=== PATIENT | male | born 1990 | race Caucasian/White ===

== ENCOUNTER 2016-03-30 16:21 | Emergency (ER) | payer SELFPAY ==
[2016-03-30] MEDS ORDERED: IBUPROFEN 800 MG TABLET PO ONE (17:38)
[2016-03-30] MEDS ORDERED: AMOXICILLIN TRIHYDRATE 500 MG CAPSULE PO ONE (17:38)
[2016-03-30 17:40] VITALS: BP 146/95
--- NOTE | 2016-03-30 17:40 | ER Document Report ---
HPI - HPI Patient complains to provider of: right ear pain Onset: Yesterday Onset/Duration: Sudden, Persistent Quality of pain: Achy Severity: Severe Pain Level: 5 Context: Patient since the emergency department with complaints of right ear pain. He reports he tried cleaning his ear yesterday and started having ear pain. He denies other symptoms such as fever vomiting diarrhea. Patient has heat pack to his ear and reports it makes his ear feel a lot better. Associated Symptoms: None Exacerbated by: Denies Relieved by: Denies Similar symptoms previously: No Recently seen / treated by doctor: No Past Medical History - General Information source: Patient - Social History Smoking Status: Current Every Day Smoker Cigarette use (# per day): Yes Chew tobacco use (# tins/day): No Frequency of alcohol use: None Drug Abuse: None Family History: Reviewed & Not Pertinent, Arthritis, CAD, Hyperlipidemia, Hypertension, Malignancy Pulmonary Medical History: Reports: Hx Asthma Skin Medical History: Denies Hx MRSA Psychiatric Medical History: Reports: Hx Attention Deficit Hyperactivity Disorder Surgical Hx: Negative - Immunizations Immunizations up to date: No Hx Diphtheria, Pertussis, Tetanus Vaccination: Yes - unknown Vertical Provider Document - CONSTITUTIONAL Agree With Documented VS: Yes Exam Limitations: No Limitations General Appearance: WD/WN, Mild Distress - moaning with heat pack to his ear - INFECTION CONTROL TRAVEL OUTSIDE OF THE [place] IN LAST 30 DAYS: No - HEENT HEENT: Atraumatic, Normocephalic, Tympanic Membrane Red - right - NECK Neck: Normal Inspection, Supple. negative: Lymphadenopathy-Left, Lymphadenopathy-Right - RESPIRATORY Respiratory: Breath Sounds Normal - CARDIOVASCULAR Cardiovascular: Regular Rate - MUSCULOSKELETAL/EXTREMETIES Musculoskeletal/Extremeties: LEONIDES SIMMS - NEURO Level of Consciousness: Awake, Alert, Appropriate Motor/Sensory: No Motor Deficit - DERM Integumentary: Warm, Dry Course - Re-evaluation Re-evalutation: 03/30/16 17:44 She instructed on amoxicillin and Motrin. Verbalized understanding. Patient also instructed to follow-up with the primary care provider for recheck or return here for worsening condition. Discharge - Discharge Clinical Impression: Right ear pain, elevated blood pressure Otitis media Qualifiers: Otitis media type: unspecified Laterality: right Chronicity: acute Condition: Stable Disposition: ADMITTED INPATIENT Instructions: Amoxicillin ([facility]), Use of [id number] Ibuprofen ([facility]), Family Physicians / Practices Additional Instructions: *You have been evaluated for ear pain, otitis media *Monitor your blood pressure. Your blood pressure was elevated today. This may be because you were anxious, in pain or because you need medication. It is important to follow up with your primary care provider for full evaluation. *Take medication as prescribed *Take ibuprofen as indicated for pain *Follow up with a primary care provider within one week for recheck *Return to ED for worsening condition, changes, needs Prescriptions: Amoxicillin Trihydrate [Amoxil 500 mg Capsule] 500 mg PO TID #30 capsule Forms: Elevated Blood Pressure
== END 2016-03-30 17:45 | disposition home or self-care (01) ==
LOC: ER 16:21
DX: H66.91 Otitis media, unspecified, right ear (principal); R03.0 Elevated blood-pressure reading, without diagnosis of hypertension; F17.210 Nicotine dependence, cigarettes, uncomplicated
CPT/HCPCS: 99283

== ENCOUNTER 2016-08-14 23:22 | Emergency (ER) | payer MEDICAID ==
--- NOTE | 2016-08-15 00:25 | ER Document Report ---
HPI - HPI Patient complains to provider of: Possible scabies Onset: Other Pain Level: Denies Context: 26-year-old male was told to come to the emergency department or clinic to get treatment for scabies. His children were found to have scabies and they are under the care of DSS For the past 3 weeks. He has no known rash or itching. Associated Symptoms: None Exacerbated by: Denies Relieved by: Denies Similar symptoms previously: No Recently seen / treated by doctor: No - ROS ROS below otherwise negative: Yes Systems Reviewed and Negative: Yes All other systems reviewed and negative - DERM Skin Color: Normal, [place] Past Medical History - General Information source: Patient - Social History Smoking Status: Current Every Day Smoker Lives with: Spouse/Significant other Family History: Reviewed & Not Pertinent, Arthritis, CAD, Hyperlipidemia, Hypertension, Malignancy Patient has suicidal ideation: No Patient has homicidal ideation: No Pulmonary Medical History: Reports: Hx Asthma Renal/ Medical History: Denies: Hx Peritoneal Dialysis Skin Medical History: Denies Hx MRSA Psychiatric Medical History: Reports: Hx Attention Deficit Hyperactivity Disorder - Immunizations Immunizations up to date: No Hx Diphtheria, Pertussis, Tetanus Vaccination: Yes - unknown Vertical Provider Document - CONSTITUTIONAL Agree With Documented VS: Yes Exam Limitations: No Limitations General Appearance: No Apparent Distress - INFECTION CONTROL TRAVEL OUTSIDE OF THE [place] IN LAST 30 DAYS: No - HEENT HEENT: Normal ENT Exam Notes: Decayed teeth - NECK Neck: Supple - RESPIRATORY Respiratory: Breath Sounds Normal, No Respiratory Distress O2 Sat by Pulse Oximetry: 100 - CARDIOVASCULAR Cardiovascular: Regular Rate, Regular Rhythm - DERM Integumentary: Warm, Dry, No Rash Course - Re-evaluation Re-evalutation: 08/15/16 16:03 Late entry: Treated the patient and his has evidence of scabies rash. - Vital Signs Vital signs: Temp Pulse Resp BP Pulse Ox 97.7 F 72 16 132/79 H 100 08/14/16 23:25 08/14/16 23:25 08/14/16 23:25 08/14/16 23:25 08/14/16 23:25 Discharge - Discharge Clinical Impression: possible scabies Condition: Good Disposition: HOME, SELF-CARE Instructions: Scabies ([facility]), Anti-Mite Skin Creams Additional Instructions: cream neck to toes as instructed, wash off in 12 hours to er any concerns Prescriptions: Permethrin [Elimite] 60 gm TP NOW #1 cream..g. Referrals: SANTOSH KO DO [Primary Care Provider] - Follow up as needed
[2016-08-15 00:43] VITALS: BP 116/52
== END 2016-08-15 00:44 | disposition home or self-care (01) ==
LOC: ER 23:22
DX: B86 Scabies (principal); F17.200 Nicotine dependence, unspecified, uncomplicated
CPT/HCPCS: 99282

== ENCOUNTER 2016-11-23 21:56 | Emergency (ER) | payer SELFPAY ==
[2016-11-23 22:39] VITALS: BP 124/78
[2016-11-23] MEDS ORDERED: LIDOCAINE 2% INJ (20 MG/ML) 20 ML MDV INJ ONE (23:41)
[2016-11-23] MEDS ORDERED: PENICILLIN V POTASSIUM 500 MG TABLET PO ONE (23:41)
[2016-11-23] MEDS ORDERED: BUPIVACAINE HCL 0.5 % INJ/PF 30 ML SDV INJ ONE (23:41)
--- NOTE | 2016-11-24 00:43 | ER Document Report ---
ED General - General Chief Complaint: Toothache Stated Complaint: TOOTHACHE Time Seen by Provider: 11/23/16 23:23 Notes: Patient is a very pleasant 26-year-old male who presents with complaint of dental pain. Patient has pain along his right mandible. No significant swelling. No fevers. No vomiting. No difficulty breathing or swallowing. He is scheduled see a dentist. He says he is going to have his teeth removed. Says the pain became too severe tonight and therefore came to the ER. TRAVEL OUTSIDE OF THE [place] IN LAST 30 DAYS: No - Related Data Allergies/Adverse Reactions: No Known Allergies Allergy (Verified 11/17/14 23:17) Past Medical History - Social History Smoking Status: Current Every Day Smoker Chew tobacco use (# tins/day): No Frequency of alcohol use: None Drug Abuse: None Family History: Reviewed & Not Pertinent, Arthritis, CAD, Hyperlipidemia, Hypertension, Malignancy Patient has suicidal ideation: No Patient has homicidal ideation: No Pulmonary Medical History: Reports: Hx Asthma Renal/ Medical History: Denies: Hx Peritoneal Dialysis Skin Medical History: Denies Hx MRSA Psychiatric Medical History: Reports: Hx Attention Deficit Hyperactivity Disorder - Immunizations Immunizations up to date: No Hx Diphtheria, Pertussis, Tetanus Vaccination: Yes - unknown Review of Systems - Review of Systems Notes: My Normal Review Basic REVIEW OF SYSTEMS: CONSTITUTIONAL : Denies fever, chills, or sweats. Denies recent illness. EENT: Right-sided dental pain. RESPIRATORY: Denies cough, cold, or chest congestion. Denies shortness of breath, difficulty breathing, or wheezing. SKIN: Denies rash or skin lesions. NEUROLOGICAL: Denies altered mental status or loss of consciousness. Denies headache. Denies weakness or paralysis or loss of use of either side. Denies problems with gait or speech. Denies sensory or motor loss. ALL OTHER SYSTEMS REVIEWED AND NEGATIVE. Physical Exam - Vital signs Vitals: Temp Pulse Resp BP Pulse Ox 98.6 F 74 20 124/78 99 11/23/16 22:29 11/23/16 22:29 11/23/16 22:29 11/23/16 22:29 11/23/16 22:29 - Notes Notes: General Appearance: Well nourished, alert, cooperative, no acute distress, moderate obvious discomfort. Vitals: reviewed, See vital signs table. Head: no swelling or tenderness to the head Eyes: PERRL, EOMI, Conjuctiva clear Mouth: Patient has dental pain along the right lower teeth. Patient has multiple dental cavities with fractured teeth. There is no gingival inflammation or swelling. Throat: No tonsillar inflammation, No airway obstruction, No lymphadenopathy Neck: Supple, no neck tenderness, no swelling along the neck. Lungs: No wheezing, No rales, No rhonci, No accessory muscle use, good air exchange bilaterally. Heart: Normal rate, Regular rythm, No murmur, no rub Skin: warm, dry, appropriate color, no rash Neuro: speech clear, oriented x 3, normal affect, responds appropriately to questions. Course - Re-evaluation Re-evalutation: 11/24/16 05:39 Patient will be discharged home. Patient encouraged to return to ER immediately if he has worsening pain, swelling of the face or neck, difficulty breathing or swallowing, fevers, or if he feels unwell. I did give the patient injections of bupivacaine mixed with lidocaine. This gave him good relief. I will place him on antibiotic. Patient agrees with plan. Dictation of this chart was performed using voice recognition software; therefore, there may be some unintended grammatical errors. 11/24/16 05:41 - Vital Signs Vital signs: Temp Pulse Resp BP Pulse Ox 98.6 F 72 20 124/78 99 11/23/16 22:39 11/23/16 22:39 11/23/16 22:39 11/23/16 22:39 11/23/16 22:39 Procedures - Additional Procedures dental block Notes: 11/24/16 05:41 I injected approximately 3 mL's of lidocaine 2% mixed with bupivacaine 0.5%. Performed an inferior alveolar nerve block. This provided good relief. Patient had no complications. Discharge - Discharge Clinical Impression: Pain, dental Condition: Good Disposition: HOME, SELF-CARE Instructions: Oral Narcotic Medication ([facility]), Penicillin V K ([facility]), Toothache ( [facility]) Additional Instructions: Please return to the ER immediately if you develop facial swelling that extends below the jaw, difficulty breathing, or difficulty swallowing. Please follow up with a dentist as soon as possible. Prescriptions: Tramadol HCl [Ultram 50 mg Tablet] 50 mg PO Q6HP PRN #10 tablet PRN Reason: Penicillin V Potassium [Penicillin Vk 500 mg Tablet] 500 mg PO BID #14 tablet Forms: Return to Work
== END 2016-11-24 01:40 | disposition home or self-care (01) ==
LOC: ER 21:56
DX: K08.89 Other specified disorders of teeth and supporting structures (principal); F17.200 Nicotine dependence, unspecified, uncomplicated
CPT/HCPCS: 99282; J3490

== ENCOUNTER 2016-12-05 18:36 | Emergency (ER) | payer SELFPAY ==
--- NOTE | 2016-12-05 19:53 | ER Document Report ---
ED Skin Rash/Insect Bite/Abscs - General Chief Complaint: Abscess Stated Complaint: ABSCESS Time Seen by Provider: 12/05/16 19:41 Mode of Arrival: Ambulatory Information source: Patient Notes: 26-year-old male presents to ED for a lump in his right antecubital vein. He states the lump has been there for about 3 weeks and it is been tender. He states he has not used any IV drugs in at least a month. There is no redness no inflammation no swelling to the area there is a firm knot to the vein. Patient is not in any acute distress. TRAVEL OUTSIDE OF THE [place] IN LAST 30 DAYS: No - HPI Patient complains to provider of: Other - Not in the right AC vein Onset: Other - 3 weeks Onset/Duration: Persistent, Worse Quality of pain: Achy Severity: Moderate Pain Level: 3 Skin Character: Other - Not in the vein to the right antecubital Quality of rash: Painful Identify cause: Yes - IV drug use Exacerbated by: Denies Relieved by: Denies Similar symptoms previously: Yes Recently seen / treated by doctor: No - Related Data Allergies/Adverse Reactions: No Known Allergies Allergy (Verified 12/05/16 19:26) Past Medical History - General Information source: Patient - Social History Smoking Status: Current Every Day Smoker Cigarette use (# per day): Yes Smoking Education Provided: Yes - 7 2 minutes Frequency of alcohol use: Occasional Drug Abuse: Cocaine Family History: Reviewed & Not Pertinent, Arthritis, CAD, Hyperlipidemia, Hypertension, Malignancy Patient has suicidal ideation: No Patient has homicidal ideation: No - Past Medical History Cardiac Medical History: Reports: None Pulmonary Medical History: Reports: Hx Asthma EENT Medical History: Reports: None Neurological Medical History: Reports: None Endocrine Medical History: Reports: None Renal/ Medical History: Reports: None Malignancy Medical History: Reports None GI Medical History: Reports: None Musculoskeltal Medical History: Reports None Skin Medical History: Reports None Psychiatric Medical History: Reports: Hx Attention Deficit Hyperactivity Disorder Traumatic Medical History: Reports: None Infectious Medical History: Reports: None Surgical Hx: Negative Past Surgical History: Reports: None - Immunizations Immunizations up to date: No Hx Diphtheria, Pertussis, Tetanus Vaccination: Yes - unknown Review of Systems - Review of Systems Constitutional: No symptoms reported EENT: No symptoms reported Cardiovascular: No symptoms reported Respiratory: No symptoms reported Gastrointestinal: No symptoms reported Genitourinary: No symptoms reported Male Genitourinary: No symptoms reported Musculoskeletal: Other - Knot to the vein on the right antecubital Skin: No symptoms reported Hematologic/Lymphatic: No symptoms reported Neurological/Psychological: No symptoms reported Physical Exam - Vital signs Vitals: Pulse Resp BP Pulse Ox 74 16 125/70 99 12/05/16 19:26 12/05/16 19:26 12/05/16 19:26 12/05/16 19:26 Interpretation: Normal - General General appearance: Appears well, Alert - HEENT Head: Normocephalic, Atraumatic Eyes: Normal Pupils: PERRL - Respiratory Respiratory status: No respiratory distress Chest status: Nontender Breath sounds: Normal Chest palpation: Normal - Cardiovascular Rhythm: Regular Heart sounds: Normal auscultation Murmur: No - Abdominal Inspection: Normal Distension: No distension Bowel sounds: Normal Tenderness: Nontender Organomegaly: No organomegaly - Back Back: Normal, Nontender - Extremities General upper extremity: Normal color, Normal ROM, Normal temperature General lower extremity: Normal inspection, Nontender, Normal color, Normal ROM , Normal temperature, Normal weight bearing. No: Randy's sign Elbow: Tender, Other - Small not to the vein on the lateral antecubital right arm. No redness no swelling no inflammation. Pulses present to the antecubital and the radial pulse. Cap refill is brisk. - Neurological Neuro grossly intact: Yes Cognition: Normal Orientation: AAOx4 Kim Coma Scale Eye Opening: Spontaneous Kim Coma Scale Verbal: Oriented [place] Coma Scale Motor: Obeys Commands [place] Coma Scale Total: 15 Speech: Normal Motor strength normal: LUE, RUE, LLE, RLE Sensory: Normal - Psychological Associated symptoms: Normal affect, Normal mood - Skin Skin Temperature: Warm Skin Moisture: Dry Skin Color: Normal Course - Re-evaluation Re-evalutation: 12/05/16 21:34 Consulted for the not to the vein in the right antecubital. He stated he did not need a Doppler as this was a superficial vein. Instructions given for warm compresses ibuprofen and Tylenol for the discomfort. Patient instructed to follow-up with his primary doctor. - Vital Signs Vital signs: Temp Pulse Resp BP Pulse Ox 74 16 125/70 99 12/05/16 19:26 12/05/16 19:26 12/05/16 19:26 12/05/16 19:26 Discharge - Discharge Clinical Impression: painful vein right anticubital Condition: Stable Disposition: HOME, SELF-CARE Instructions: Family Physicians / Practices Additional Instructions: He was seen today for painful vein in your right antecubital space in the right arm. There is no cellulitis no infection at this time. Ibuprofen Ibuprofen is an excellent, safe drug for pain control. In addition, it has potent antiinflammatory effects which are beneficial, especially in the treatment of injuries, arthritis, or tendonitis. It's best to take ibuprofen with food. Persons with ulcer disease or allergy to aspirin should notify their physician of this before taking ibuprofen. Take the medication exactly as prescribed. Don't take additional doses unless instructed to do so by your doctor. If you develop wheezing, shortness of breath, hives, faintness, stomach pain, vomiting, or dark black stools, return for re-evaluation at once. Apply warm compresses to the area 3 times a day to try to help with the pain. If the knot becomes larger or you develop redness to the area return to the ED for reassessment. FOLLOW-UP CARE: If you have been referred to a physician for follow-up care, call the physician s office for an appointment as you were instructed or within the next two days. If you experience worsening or a significant change in your symptoms, notify the physician immediately or return to the Emergency Department at any time for re-evaluation. Forms: Smoking Cessation Education, Return to Work
[2016-12-05 19:54] VITALS: BP 125/70
== END 2016-12-05 20:03 | disposition home or self-care (01) ==
LOC: ER 18:36
DX: M79.641 Pain in right hand (principal); F17.210 Nicotine dependence, cigarettes, uncomplicated
CPT/HCPCS: 99282

== ENCOUNTER 2018-03-05 10:01 | Emergency (ER) | payer SELFPAY ==
[2018-03-05 10:07] VITALS: BP 147/87
--- NOTE | 2018-03-05 10:21 | ER Document Report ---
ED Medical Screen (RME) - General Chief Complaint: Inability to Void Stated Complaint: PAINFUL URINATION Time Seen by Provider: 03/05/18 10:19 Mode of Arrival: Ambulatory Information source: Patient, [facility] Records Notes: 27-year-old male with asthma presents with inability to urinate for 12 hours. Patient has also had pain with urination for 1 day. He reports recent diagnosis of gonorrhea for which he was treated for by the health department. Patient is currently taking Azo for dysuria. I have greeted and performed a rapid initial assessment of this patient. A comprehensive ED assessment and evaluation of the patient, analysis of test results and completion of medical decision making process we will be contacted by additional ED providers. PHYSICAL EXAMINATION: Vital signs reviewed-tachycardic, mildly hypertensive. GENERAL: Drowsy LUNGS: No respiratory distress Musculoskeletal: Normal range of motion NEUROLOGICAL: Normal speech, normal gait. PSYCH: Normal mood, normal affect. SKIN: Warm, Dry, normal turgor, no rashes or lesions noted. TRAVEL OUTSIDE OF THE [place] IN LAST 30 DAYS: No - HPI Onset: Yesterday Onset/Duration: Sudden Quality of pain: Burning Severity: Moderate Associated Symptoms: denies: Fever Exacerbated by: Denies Relieved by: Denies Similar symptoms previously: Yes Recently seen / treated by doctor: Yes - Related Data Smoking: Cigarettes Frequency of alcohol use: None Drug Abuse: None Allergies/Adverse Reactions: No Known Allergies Allergy (Verified 01/21/17 20:51) Past Medical History Pulmonary Medical History: Reports: Hx Asthma Renal/ Medical History: Denies: Hx Peritoneal Dialysis Skin Medical History: Denies Hx MRSA Psychiatric Medical History: Reports: Hx Attention Deficit Hyperactivity Disorder - Immunizations Immunizations up to date: No Hx Diphtheria, Pertussis, Tetanus Vaccination: Yes - unknown Physical Exam - Vital signs Vitals: Temp Pulse Resp BP Pulse Ox 98 F 109 H 23 H 147/87 H 100 03/05/18 10:06 03/05/18 10:06 03/05/18 10:06 03/05/18 10:06 03/05/18 10:06 Course - Vital Signs Vital signs: Temp Pulse Resp BP Pulse Ox 98 F 109 H 23 H 147/87 H 100 03/05/18 10:06 03/05/18 10:06 03/05/18 10:06 03/05/18 10:06 03/05/18 10:06
--- NOTE | 2018-03-05 13:26 | ER Document Report ---
ED General - General Chief Complaint: Inability to Void Stated Complaint: PAINFUL URINATION Time Seen by Provider: 03/05/18 10:19 Mode of Arrival: Ambulatory Information source: Patient Notes: Patient is an otherwise healthy 19-year-old male who presents to the emergency department today with urinary retention. Patient reports that he has been unable to urinate for 12 hours although he does have the feeling that he needs to urinate. Patient reports that he is recently getting over a gonorrhea infection and does endorse some dysuria. Patient reports yesterday he injected some meth that was laced with a substance that "makes horse hooves stiff". Patient denies any other symptoms to include fever. TRAVEL OUTSIDE OF THE [place] IN LAST 30 DAYS: No - Related Data Allergies/Adverse Reactions: No Known Allergies Allergy (Verified 01/21/17 20:51) Past Medical History - General Information source: Patient, [facility] Records - Social History Smoking Status: Current Every Day Smoker Frequency of alcohol use: None Drug Abuse: None Family History: Reviewed & Not Pertinent, Arthritis, CAD, Hyperlipidemia, Hypertension, Malignancy Patient has suicidal ideation: No Patient has homicidal ideation: No Pulmonary Medical History: Reports: Hx Asthma Renal/ Medical History: Denies: Hx Peritoneal Dialysis Skin Medical History: Denies Hx MRSA Psychiatric Medical History: Reports: Hx Attention Deficit Hyperactivity Disorder - Immunizations Immunizations up to date: No Hx Diphtheria, Pertussis, Tetanus Vaccination: Yes - unknown Review of Systems - Review of Systems Male Genitourinary: Other - Unable to urinate Physical Exam - Vital signs Vitals: Temp Pulse Resp BP Pulse Ox 98 F 109 H 23 H 147/87 H 100 03/05/18 10:06 03/05/18 10:06 03/05/18 10:06 03/05/18 10:06 03/05/18 10:06 - Notes Notes: PHYSICAL EXAMINATION: GENERAL: Well-appearing, well-nourished and in moderate distress. HEAD: Atraumatic, normocephalic. EYES: Pupils equal round and reactive to light, extraocular movements intact, sclera anicteric, conjunctiva are normal. ENT: Nares patent, oropharynx clear without exudates. Moist mucous membranes. NECK: Normal range of motion, supple without lymphadenopathy LUNGS: Breath sounds clear to auscultation bilaterally and equal. No wheezes rales or rhonchi. HEART: Regular rate and rhythm without murmurs ABDOMEN: Soft, nontender, distended abdomen. No guarding, no rebound. No masses appreciated. Musculoskeletal: Normal range of motion, no pitting or edema. No cyanosis. NEUROLOGICAL: Cranial nerves grossly intact. Normal speech, normal gait. Normal sensory, motor exams PSYCH: Normal mood, normal affect. SKIN: Warm, Dry, normal turgor, no rashes or lesions noted. Course - Re-evaluation Re-evalutation: Myself and Dr. Granados came to the bedside, Dr. Granados performed a ultrasound of the patient's bladder, there is at least 500 cc of urine in the bladder. Patient did try to get up and use the restroom however he continues to state he is unable to urinate. A Mcgowan catheter will be ordered. This was explained to the patient. When the nurse went to the bedside to insert the Mcgowan the patient became very aggressive and agitated cussing at staff members stating that he was going to leave and go to another hospital. Patient kept yelling out "you are not touching going to touch my reggie". Multiple staff members did try to talk the patient into staying so that we can decompress his bladder. Patient stormed out of the emergency department. Patient was alert, oriented and capable of making his own decisions. - Vital Signs Vital signs: Temp Pulse Resp BP Pulse Ox 98 F 109 H 23 H 147/87 H 100 03/05/18 10:06 03/05/18 10:06 03/05/18 10:06 03/05/18 10:06 03/05/18 10:06 Discharge - Discharge Clinical Impression: Urinary retention Condition: Fair Disposition: ELOPED
== END 2018-03-05 11:13 | disposition left against medical advice (07) ==
LOC: ER 10:01
DX: R33.9 Retention of urine, unspecified (principal); R30.0 Dysuria; F17.200 Nicotine dependence, unspecified, uncomplicated
CPT/HCPCS: 99281

== ENCOUNTER 2018-03-20 13:12 | Emergency (ER) | payer SELFPAY ==
[2018-03-20 13:31] VITALS: BP 134/90
[2018-03-20] MEDS ORDERED: ACETAMINOPHEN 325 MG TABLET PO ONE (14:25)
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
[2018-03-20] MEDS ORDERED: KETOROLAC TROMETHAMINE 0.45% 4 DROP/0.4 ML DROPERETTE OS ONE (17:57)
[2018-03-20] MEDS ORDERED: CIPROFLOXACIN HCL 0.3% OPH SOLN 2.5 ML OS ONE (17:59)
[2018-03-20] MEDS ORDERED: HYDROCODONE/ACETAMINOPHEN 5-325 MG (6 TAB/ER DISP) PO PRN (18:08)
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
== END 2018-03-20 18:55 | disposition home or self-care (01) ==
LOC: ER 13:12
DX: S05.02XA Injury of conjunctiva and corneal abrasion without foreign body, left eye, initial encounter (principal); J34.89 Other specified disorders of nose and nasal sinuses; M54.2 Cervicalgia; Y04.0XXA Assault by unarmed brawl or fight, initial encounter; F17.200 Nicotine dependence, unspecified, uncomplicated; J45.909 Unspecified asthma, uncomplicated
CPT/HCPCS: 99283; J3490

== ENCOUNTER 2018-07-22 13:24 | Emergency (ER) | payer SELFPAY ==
[2018-07-22 13:31] VITALS: BP 135/68
--- NOTE | 2018-07-22 15:00 | ER Document Report ---
HPI - HPI Time Seen by Provider: 07/22/18 14:23 Pain Level: 3 Notes: Patient is a 28-year-old male presenting with pain to his right fourth digit. Patient reports he cut his nails and he believes he got them too short or he thinks there was bacteria on the nail clippers as he states that that is what started the pain and infection. Patient reports some drainage from the area. He reports pain. He denies any history of MRSA. - CONSTITUTIONAL Constitutional: DENIES: Fever, Chills - REPRODUCTIVE Reproductive: DENIES: : Past Medical History - Social History Smoking Status: Current Every Day Smoker Frequency of alcohol use: None Drug Abuse: None Family History: Reviewed & Not Pertinent, Arthritis, CAD, Hyperlipidemia, Hypertension, Malignancy Patient has suicidal ideation: No Patient has homicidal ideation: No Pulmonary Medical History: Reports: Hx Asthma Renal/ Medical History: Denies: Hx Peritoneal Dialysis Skin Medical History: Denies Hx MRSA Psychiatric Medical History: Reports: Hx Attention Deficit Hyperactivity Disorder - Immunizations Immunizations up to date: No Hx Diphtheria, Pertussis, Tetanus Vaccination: Yes - unknown Vertical Provider Document - CONSTITUTIONAL Notes: PHYSICAL EXAMINATION: GENERAL: Well-appearing, well-nourished and in no acute distress. HEAD: Atraumatic, normocephalic. EYES: Pupils equal round extraocular movements intact, conjunctiva are normal. ENT: Nares patent NECK: Normal range of motion LUNGS: No respiratory distress Musculoskeletal: Normal range of motion NEUROLOGICAL: Normal speech, normal gait. PSYCH: Normal mood, normal affect. SKIN: Warm, Dry, normal turgor, erythema with exudates noted to right fourth digit near the fingernail. There is no drainable abscess. - INFECTION CONTROL TRAVEL OUTSIDE OF THE [place] IN LAST 30 DAYS: No Course - Re-evaluation Re-evalutation: No drainable abscess identified. Patient does have mild cellulitis around the fingernail on the right hand fourth digit. He states this is already been draining. There is mild drainage noted at the time. Will start patient on oral antibiotics and encouraged him to do warm soaks 3-4 times daily. Patient verbalizes understanding and agreement with plan. - Vital Signs Vital signs: Temp Pulse Resp BP Pulse Ox 98.0 F 96 16 135/68 H 98 07/22/18 13:30 07/22/18 13:30 07/22/18 13:30 07/22/18 13:30 07/22/18 13:30 Discharge - Discharge Clinical Impression: Cellulitis Qualifiers: Site of cellulitis: other site Qualified Code(s): L03.818 - Cellulitis of other sites Condition: Stable Disposition: HOME, SELF-CARE Additional Instructions: Please apply warm compresses or soak in hot water at least 3 times daily. This will allow this to continue to drain. Please take antibiotics as prescribed. Take Tylenol or ibuprofen for pain. Return to the emergency department for any increased swelling or pain or if the redness extends past the marker line by 2 cm or more. Prescriptions: Cephalexin [Cephalexin 500 MG Tablet] 1 tab PO QID #28 tablet
== END 2018-07-22 15:07 | disposition home or self-care (01) ==
LOC: ER 13:24
DX: L03.011 Cellulitis of right finger (principal); M79.644 Pain in right finger(s); F17.200 Nicotine dependence, unspecified, uncomplicated; J45.909 Unspecified asthma, uncomplicated
CPT/HCPCS: 99283

== ENCOUNTER 2018-09-30 09:43 | Emergency (ER) | payer SELFPAY ==
[2018-09-30] MEDS ORDERED: AZITHROMYCIN 250 MG TABLET PO ONE (11:22)
[2018-09-30] MEDS ORDERED: CEFTRIAXONE INJ 250 MG VIAL IM ONE (11:23)
[2018-09-30] MEDS ORDERED: ACYCLOVIR 200 MG CAPSULE PO ONE (11:23)
[2018-09-30] MEDS ORDERED: PENICILLIN G BENZATHINE 1.2 MILLION UNIT/2 ML DISP.SYRIN IM ONE (11:26)
[2018-09-30] MEDS ORDERED: LIDOCAINE 1% INJ-PF (10 MG/ML) 30 ML SDV ONE (11:34)
--- NOTE | 2018-09-30 13:00 | RADIOLOGY REPORT (SQ) ---
EXAM DESCRIPTION: TIBIA FIBULA RIGHT COMPLETED DATE/TIME: 09/30/2018 12:43 pm REASON FOR STUDY: poss FB COMPARISON: None. NUMBER OF VIEWS: Two views. TECHNIQUE: Two radiographic images acquired of the right tibia and fibula to include the knee and an kle in at least one projection. LIMITATIONS: None. FINDINGS: MINERALIZATION: Normal. BONES: No acute fracture or dislocation. No worrisome bone lesions. SOFT TISSUES: No obvious swelling or foreign body. OTHER: No other significant finding. IMPRESSION: NO RADIOGRAPHIC EVIDENCE OF ACUTE INJURY. TECHNICAL DOCUMENTATION: JOB ID: [id number] [id number] 2010 [employer]- All Rights Reserved Reading location - IP/workstation name: [employer]
--- NOTE | 2018-09-30 13:03 | ER Document Report ---
ED General - General Chief Complaint: Rash Stated Complaint: RIGHT LEG PAIN, RASH Time Seen by Provider: 09/30/18 11:14 Notes: Patient is a 28-year-old male presents to the emergency department for multiple complaints. Patient states approximately 2 weeks ago he had sexual intercourse. States shortly after that he noticed a sore to his right lower leg. States he noted some minor drainage from that sore but states that it has not "cleared up" over the last 2 weeks. Patient states he also noted a generalized rash in his genitalia shortly after sexual intercourse. Patient's denying any penile discharge but states at times it does hurt when he urinates. Patient voices that he is a IV heroin user. States he has injected in multiple locations. Patient states he is worried that the sore to his right lower leg could be from an infection from injecting heroin. Patient voices concern also that it could be syphilis. Patient states he looked online and the pictures he keeps seeing online look exactly like his sore. Patient is denying any known medical problems, denies any daily medications, denies any allergies. TRAVEL OUTSIDE OF THE [place] IN LAST 30 DAYS: No - Related Data Allergies/Adverse Reactions: No Known Allergies Allergy (Verified 09/30/18 09:44) Past Medical History - General Information source: Patient, Parent - Social History Smoking Status: Current Every Day Smoker Drug Abuse: Heroin Family History: Reviewed & Not Pertinent, Arthritis, CAD, Hyperlipidemia, Hypertension, Malignancy Patient has suicidal ideation: No Patient has homicidal ideation: No Pulmonary Medical History: Reports: Hx Asthma Renal/ Medical History: Denies: Hx Peritoneal Dialysis Skin Medical History: Denies Hx MRSA Psychiatric Medical History: Reports: Hx Attention Deficit Hyperactivity Disorder - Immunizations Immunizations up to date: No Hx Diphtheria, Pertussis, Tetanus Vaccination: Yes - unknown Review of Systems - Review of Systems Constitutional: denies: Fever EENT: No symptoms reported Cardiovascular: No symptoms reported Respiratory: No symptoms reported Gastrointestinal: No symptoms reported Genitourinary: See HPI Male Genitourinary: See HPI Musculoskeletal: No symptoms reported Skin: See HPI Hematologic/Lymphatic: No symptoms reported Neurological/Psychological: No symptoms reported Physical Exam - Vital signs Vitals: Temp Pulse Resp BP Pulse Ox 97.7 F 102 H 16 123/83 99 09/30/18 09:52 09/30/18 09:52 09/30/18 09:52 09/30/18 09:52 09/30/18 09:52 - Notes Notes: GENERAL: Alert, interacts well. No acute distress. HEAD: Normocephalic, atraumatic. EYES: Pupils equal, round, and reactive to light. Extraocular movements intact. ENT: Oral mucosa moist, tongue midline. NECK: Full range of motion. Supple. Trachea midline. LUNGS: Clear to auscultation bilaterally, no wheezes, rales, or rhonchi. No respiratory distress. HEART: Regular rate and rhythm. No murmur ABDOMEN: Soft, non-tender. Non-distended. Bowel sounds present in all 4 quadrants. EXTREMITIES: Moves all 4 extremities spontaneously. No edema, normal radial and dorsalis pedis pulses bilaterally. No cyanosis. BACK: no cervical, thoracic, lumbar midline tenderness. No saddle anesthesia, normal distal neurovascular exam. NEUROLOGICAL: Alert and oriented x3. Normal speech. cranial nerves II through XII grossly intact PSYCH: Normal affect, normal mood. SKIN: Warm, dry, normal turgor. No rash noted to the patient's palms or soles. Area of 2 cm x 2 cm erythema no active fluctuance noted to the lateral aspect of the right pierce. No active discharge noted. Genitalia: Systems Lead Jonny PCT vesicular erythematous lesions noted to the base of the penis, circumcised, no active discharge at the meatus. Bilateral testicles nonerythematous, nontender. Course - Re-evaluation Re-evalutation: 09/30/18 13:00 Tibia/Fibula X-Ray 09/30/18 11:22 IMPRESSION: NO RADIOGRAPHIC EVIDENCE OF ACUTE INJURY. X-rays ordered to rule out any foreign body potential needle in patient's right lower extremity. Syphilis testing ordered and pending. Gonorrhea and Chlamydia testing ordered and pending. Patient was treated prophylactically for gonorrhea, chlamydia and syphilis in the emergency room. Patient will also be treated for genital herpes. Based on patient's complaints and risk taking behaviors I will treat patient with antibiotics as I am unsure if this rash is due to a syphilis infection or a bacterial infection caused from injecting heroin. I have discussed with patient need to follow-up with the health department. I have provided him with phone numbers for the health department, [facility], [facility]. Patient and mother both voiced understanding. At this time will discharge with return precautions and follow-up recommendations. Verbal discharge instructions given a the bedside and opportunity for questions given. Medication warnings reviewed. Patient is in agreement with this plan and has verbalized understanding of return precautions and the need for primary care follow-up in the next 24-72 hours. This medical record was dictated with voice recognizing software. There may be grammatical, syntax errors that are unintended. - Vital Signs Vital signs: Temp Pulse Resp BP Pulse Ox 97.7 F 102 H 16 123/83 99 09/30/18 09:52 09/30/18 09:52 09/30/18 09:52 09/30/18 09:52 09/30/18 09:52 Discharge - Discharge Clinical Impression: Dysuria, Genital herpes in men, Rash Condition: Stable Disposition: HOME, SELF-CARE Instructions: Genital Herpes ([facility]), Acyclovir ([facility]), Cellulitis ([facility]) Additional Instructions: As we discussed you have been seen and treated in the emergency department for m ultiple complaints. You have been prophylactically treated for gonorrhea and chlamydia. Those tests do not result 4 hours. Please call [phone] for culture results. I have also drawn blood to test for syphilis. You have also been prophylactically treated for same. Please call that same phone number to find out your syphilis status. I am also going to place you on antibiotics as I am unsure that this is a syphilis infection, or could be a bacterial infection. Please make sure you take antibiotics as prescribed. I am also treating you for genital herpes. Please know that you can pass this infection to anyone you have sexual contact with. Please take medications for symptomatic relief. Please follow-up with the health department in 24 to 48 hours. Please also follow-up with [facility] or [facility] for continued medical care. Prescriptions: Acyclovir [Acyclovir 400 mg Tablet] 400 mg PO TID 10 Days tablet Cephalexin Monohydrate [Keflex 500 mg Capsule] 500 mg PO BID 7 Days #14 capsule [facility] [NO [facility]AL MD] - Follow up as needed [facility] [Provider Group] - Follow up as needed [facility] [Provider Group] - Follow up as needed
[2018-09-30 13:42] LABS: CHLAM PCR NOT DETECTED (NOT DETECT)
[2018-09-30 13:51] VITALS: BP 111/69
== END 2018-09-30 13:52 | disposition home or self-care (01) ==
LOC: ER 09:43
DX: A60.00 Herpesviral infection of urogenital system, unspecified (principal); R30.0 Dysuria; R21 Rash and other nonspecific skin eruption; F11.90 Opioid use, unspecified, uncomplicated; F17.200 Nicotine dependence, unspecified, uncomplicated; J45.909 Unspecified asthma, uncomplicated
CPT/HCPCS: 99283; 96372; 36415; 86592; 87491; 87591; 73590; J3490; J0561; J0696

== ENCOUNTER 2018-10-14 02:19 | Emergency (ER) | payer SELFPAY ==
[2018-10-14] MEDS ORDERED: LIDOCAINE 1% INJ-PF (10 MG/ML) 30 ML SDV INJ ONE (02:41)
[2018-10-14] MEDS ORDERED: ACETAMINOPHEN 325 MG TABLET PO ONE (03:07)
--- NOTE | 2018-10-14 04:07 | RADIOLOGY REPORT (SQ) ---
CLINICAL HISTORY: laceration, eval for FB COMPARISON: None. TECHNIQUE: XR HAND 3 OR MORE VIEWS 10/14/2018 2:40 AM CDT FINDINGS: There is no fracture. Joint spaces are preserved. Soft tissues are unremarkable. IMPRESSION: No acute osseous findings.
[2018-10-14 04:20] VITALS: BP 120/79
--- NOTE | 2018-10-14 04:22 | ER Document Report ---
HPI - HPI Time Seen by Provider: 10/14/18 02:33 Pain Level: 5 Notes: Patient is a 28-year-old male presenting to the emergency department with chief complaint of multiple lacerations. He states he was using a knife trying to cut a piece of paper out of a book when he created the lacerations to the second, third and fourth digits of the left hand. The bleeding is controlled at the time of arrival. Tdap up-to-date per patient. - REPRODUCTIVE Reproductive: DENIES: : - MUSCULOSKELETAL Musculoskeletal: REPORTS: Extremity pain Past Medical History - General Information source: Patient - Social History Smoking Status: Current Every Day Smoker Frequency of alcohol use: None Drug Abuse: None Family History: Reviewed & Not Pertinent, Arthritis, CAD, Hyperlipidemia, Hypertension, Malignancy Patient has suicidal ideation: No Patient has homicidal ideation: No Pulmonary Medical History: Reports: Hx Asthma Renal/ Medical History: Denies: Hx Peritoneal Dialysis Skin Medical History: Denies Hx MRSA Psychiatric Medical History: Reports: Hx Attention Deficit Hyperactivity Disorder - Immunizations Immunizations up to date: No Hx Diphtheria, Pertussis, Tetanus Vaccination: Yes - unknown Vertical Provider Document - CONSTITUTIONAL Notes: PHYSICAL EXAMINATION: GENERAL: Well-appearing, well-nourished and in no acute distress. HEAD: Atraumatic, normocephalic. EYES: Pupils equal round extraocular movements intact, conjunctiva are normal. ENT: Nares patent NECK: Normal range of motion LUNGS: No respiratory distress Musculoskeletal: Normal range of motion NEUROLOGICAL: Normal speech, normal gait. PSYCH: Normal mood, normal affect. SKIN: Warm, Dry, normal turgor, no rashes or lesions noted. Superficial lacerations noted to left second, third and fourth digits at the distal end of the fingers, these are all superficial with no active bleeding. Cap refill intact to all affected digits, normal motor and sensation. - INFECTION CONTROL TRAVEL OUTSIDE OF THE [place] IN LAST 30 DAYS: No Course - Re-evaluation Re-evalutation: Digital block was performed to left second and fourth digit for repair with sutures. Patient tolerated well. Laceration to third digit does not require sutures. Patient understands ED return precautions. The patient's emergency department workup and current diagnosis were explained to the patient and or family. Follow-up instructions were provided. Medications if prescribed were discussed. Instructions for when to return to the emergency department including specific worrisome symptoms were discussed with the patient and/or family. - Vital Signs Vital signs: Temp Pulse Resp BP Pulse Ox 98.3 F 100 20 118/76 97 10/14/18 02:24 10/14/18 02:24 10/14/18 02:24 10/14/18 02:10/14/18 02:24 Procedures - Laceration/Wound Repair Left second digit Wound length (cm): 2 Wound's Depth, Shape: Superficial Laceration pre-procedure: Sterile PPE donned Anesthetic type: 1% Lidocaine Wound Debrided: Minimal Wound Repaired With: Sutures Suture Size/Type: 5:0 Number of Sutures: 3 Layer Closure?: No Post-procedure wound care: Sterile dressing applied Post-procedure NV exam normal: Yes Complications: No Left fourth digit Wound length (cm): 1 Wound's Depth, Shape: Superficial Laceration pre-procedure: Sterile PPE donned Anesthetic type: 1% Lidocaine Wound explored: Clean Wound Repaired With: Sutures Suture Size/Type: 5:0 Number of Sutures: 1 Post-procedure wound care: Sterile dressing applied Post-procedure NV exam normal: Yes Complications: No Discharge - Discharge Clinical Impression: Laceration Condition: Stable Disposition: HOME, SELF-CARE Additional Instructions: Laceration Care Your laceration has been sutured to keep the skin edges aligned during healing. The time of suture removal depends on the nature and location of your cut. Please follow the care instructions the doctor has outlined for you and return for further care, according to the schedule you've been given. Keep the wound and dressing clean. Unless you were told otherwise, you may shower daily, blotting the wound dry with a clean, unused towel. At other times, If the dressing gets wet or blood soaked, remove it and blot the wound dry, then reapply a new dressing. Unless you were instructed otherwise, dressings should be changed at least daily. If any signs of infection occur (swelling, redness, increasing tenderness, red streaks, tender lumps in the armpit or groin above the laceration, or fever), see the doctor immediately. Please return to the emergency department or your primary care provider in 12-14 days for suture removal. Please return earlier if you develop any signs of infection such as increased redness, swelling, foul-smelling drainage or fever.
== END 2018-10-14 04:27 | disposition home or self-care (01) ==
LOC: ER 02:19
DX: S61.211A Laceration without foreign body of left index finger without damage to nail, initial encounter (principal); S61.213A Laceration without foreign body of left middle finger without damage to nail, initial encounter; S61.215A Laceration without foreign body of left ring finger without damage to nail, initial encounter; W26.0XXA Contact with knife, initial encounter; Y93.89 Activity, other specified; J45.909 Unspecified asthma, uncomplicated; F17.200 Nicotine dependence, unspecified, uncomplicated
CPT/HCPCS: 99283

== ENCOUNTER 2019-05-31 03:13 | Emergency (ER) | payer SELFPAY ==
[2019-05-31 03:21] VITALS: BP 152/85
== END 2019-05-31 04:18 | disposition left against medical advice (07) ==
LOC: ER 03:13
DX: Z53.21 Procedure and treatment not carried out due to patient leaving prior to being seen by health care provider (principal)